=== PATIENT | male | born 1990 | race African-American/Black ===

== ENCOUNTER 2023-09-15 14:26 | Emergency (ER) | payer MEDICAID ==
[~2023-09-15] VITALS: Ht 185.4 cm; Wt 93.0 kg
[2023-09-15 14:31] VITALS: O2SAT 97
[2023-09-15] MEDS ORDERED: METH-773 MT (16:13)
[2023-09-15] MEDS ORDERED: TRIA15CR61 TP (16:13)
[2023-09-15] MEDS ORDERED: LIDO700A15 TP (16:13)
[2023-09-15] MEDS ORDERED: CETI10CA2 MT (16:13)
[2023-09-15] MEDS: LIDOCAINE 5% PATCH TOP STA (16:23)
[2023-09-15 16:54] VITALS: BP 128/81; PULSE 95; RESP 18; TEMP 98.1
== END 2023-09-15 17:21 | disposition home or self-care (01) ==
LOC: ER 14:26
DX: M54.12 Radiculopathy, cervical region (principal); R21 Rash and other nonspecific skin eruption; Z79.899 Other long term (current) drug therapy
CPT/HCPCS: 99283

== ENCOUNTER 2023-09-23 13:17 | Emergency (ER) | payer MEDICAID ==
[~2023-09-23] VITALS: Ht 182.9 cm; Wt 85.0 kg
[~2023-09-23 13:17] MED LIST: CETI10CA2 MT; LIDO700A15 TP; METH-773 MT; TRIA15CR61 TP
[2023-09-23 13:27] VITALS: O2SAT 98
[2023-09-23] MEDS ORDERED: TRIA15CR61 TP (15:35)
[2023-09-23] MEDS ORDERED: LIDO700A15 TP (15:35)
[2023-09-23] MEDS ORDERED: METH-653 MT (15:35)
[2023-09-23 15:42] VITALS: BP 133/78; PULSE 72; RESP 18; TEMP 98.7
[2023-09-23] MEDS ORDERED: IBUPROFEN 600MG TABLET PO ONE (15:45)
== END 2023-09-23 15:44 | disposition home or self-care (01) ==
LOC: ER 13:17
DX: M54.2 Cervicalgia (principal); G80.9 Cerebral palsy, unspecified
CPT/HCPCS: 99283

== ENCOUNTER 2024-05-17 08:44 | Emergency (ER) | payer MEDICAID, OTHER ==
[~2024-05-17] VITALS: Ht 185.4 cm; Wt 91.0 kg
[~2024-05-17 08:44] MED LIST changes: +METH-653 MT
[2024-05-17 08:54] VITALS: O2SAT 97
[2024-05-17] MEDS: BACITRACIN ZINC OINT UDPKT TOP ONE (09:10)
[2024-05-17] MEDS: LIDOCAINE HCL 1% 20ML VIAL INFIL ONE (09:10)
[2024-05-17] MEDS ORDERED: BO1 TP (09:22)
[2024-05-17] MEDS ORDERED: ACET-2708 MT (09:39)
[2024-05-17 10:06] VITALS: BP 122/80; PULSE 68; RESP 16; TEMP 36.8; O2SAT 97
== END 2024-05-17 10:08 | disposition home or self-care (01) ==
LOC: ER 08:44
DX: S01.81XA Laceration without foreign body of other part of head, initial encounter (principal); Z79.899 Other long term (current) drug therapy; W01.0XXA Fall on same level from slipping, tripping and stumbling without subsequent striking against object, initial encounter; Y93.89 Activity, other specified; Y92.89 Other specified places as the place of occurrence of the external cause; Y99.8 Other external cause status
CPT/HCPCS: 12002; 99282; J3490; Z7610